=== PATIENT | male | born 1965 | race Caucasian/White ===

== ENCOUNTER → 2017-02-02 | Outpatient (CLI) | payer OTHER ==
[~2017-02-02] MED LIST: NORCO 325 MG-7.1 TAB PO
== END ==
LOC: MHCPAIN 08:36
DX: G89.29 Other chronic pain (principal); M47.812 Spondylosis without myelopathy or radiculopathy, cervical region; R51 Headache
CPT/HCPCS: G0463

== ENCOUNTER → 2017-02-24 | Outpatient (CLI) | payer OTHER | LOC: MHCPAIN 08:54 | DX: M50.31 Other cervical disc degeneration, high cervical region (principal); R51 Headache ==

== ENCOUNTER → 2017-03-02 | Outpatient (CLI) | payer OTHER | LOC: MHCPAIN 09:32 | DX: G89.29 Other chronic pain (principal); M50.31 Other cervical disc degeneration, high cervical region; R51 Headache | CPT/HCPCS: G0463 ==

== ENCOUNTER → 2017-03-31 | Outpatient (CLI) | payer OTHER | LOC: MHCPAIN 13:09 | DX: M50.31 Other cervical disc degeneration, high cervical region (principal); R51 Headache ==

== ENCOUNTER → 2017-04-15 | Outpatient (CLI) | payer OTHER | LOC: MHCPAIN 10:22 | DX: G89.29 Other chronic pain (principal); M50.90 Cervical disc disorder, unspecified, unspecified cervical region; R51 Headache | CPT/HCPCS: G0463 ==

== ENCOUNTER → 2017-05-12 | Outpatient (CLI) | payer OTHER | LOC: MHCPAIN 12:14 | DX: M50.31 Other cervical disc degeneration, high cervical region (principal) | CPT/HCPCS: J1100; J2250; J3010 ==

== ENCOUNTER → 2017-06-07 | Outpatient (CLI) | payer OTHER | LOC: MHCPAIN 09:14 | DX: G89.29 Other chronic pain (principal); M54.81 Occipital neuralgia; M50.90 Cervical disc disorder, unspecified, unspecified cervical region; R51 Headache | CPT/HCPCS: G0463 ==

== ENCOUNTER → 2017-07-20 | Outpatient (CLI) | payer OTHER | LOC: MHCPAIN 10:57 | DX: G89.29 Other chronic pain (principal); M50.90 Cervical disc disorder, unspecified, unspecified cervical region; M54.81 Occipital neuralgia; R51 Headache | CPT/HCPCS: G0463 ==

== ENCOUNTER → 2020-02-15 | Outpatient (CLI) | payer OTHER | LOC: MC.RAD 11:00 | DX: N63.20 Unspecified lump in the left breast, unspecified quadrant (principal) ==